=== PATIENT | male | born 1940 | race African-American/Black ===

== ENCOUNTER 2024-03-04 13:20 | Emergency (ER) | payer MEDICARE, MEDICAID ==
[~2024-03-04] VITALS: Ht 182.9 cm; Wt 80.0 kg
[2024-03-04 13:22] VITALS: O2SAT 97
[2024-03-04 14:37] LABS: HEMATOCRIT. 34.9 % (42.0-52.0); HEMOGLOBIN. 11.7 g/dL (14.0-18.0); MEAN CORPUSCULAR HEMOGLOBIN 30.2 pg (28.0-32.0); MEAN CORPUSCULAR HGB CONC 33.6 g/dL (31.0-37.0); MEAN PLATELET VOLUME 9.3 fl (7.4-10.4); PLATELET 104 x1000/uL (130-400); RED BLOOD CELL COUNT 3.88 mill/uL (4.7-6.1); RED CELL DISTRIBUTION WIDTH 14.6 % (11.6-14.6); WHITE BLOOD COUNT 2.8 x1000/uL (4.5-11.0)
[2024-03-04 14:39] LABS: DIFFERENTIAL COMMENT 1
[2024-03-04 14:43] LABS: PROTHROMBIN TIME 11.4 sec (9.6-11.0)
[2024-03-04 14:44] LABS: CARBON DIOXIDE 30 mEq/L (21-32); CHLORIDE 109 mEq/L (98-107); POTASSIUM 4.3 mEq/L (3.5-5.1); SODIUM 143 mEq/L (136-145)
[2024-03-04 14:45] LABS: CALCIUM 10.3 mg/dL (8.7-10.4)
[2024-03-04 14:50] LABS: CREATININE 1.5 mg/dL (0.6-1.3); GLUCOSE 94 mg/dL (70-105); UREA NITROGEN BLOOD 19 mg/dL (9-23)
[2024-03-04 14:59] LABS: TROPONIN I HIGH SENSITIVITY < 4 ng/L (3.0-53)
[2024-03-04 15:40] VITALS: BP 125/60; PULSE 56; RESP 11; TEMP 37.00296; O2SAT 97
[2024-03-04 16:05] LABS: CLARITY URINE CLEAR (CLEAR); COLOR URINE YELLOW (YELLOW); GLUCOSE URINE NEGATIVE (NEGATIVE); KETONES URINE NEGATIVE (NEGATIVE); LEUKOCYTE ESTERASE URINE NEGATIVE (NEGATIVE); NITRITE URINE NEGATIVE (NEGATIVE); OCCULT BLOOD URINE NEGATIVE (NEGATIVE); PH URINE 7.5 (4.5-8.0); PROTEIN URINE 1+ (NEGATIVE); SPECIFIC GRAVITY URINE 1.008 (1.005-1.030)
[2024-03-04 17:27] LABS: BACTERIA URINE NONE SEEN; RBC URINE NONE SEEN /hpf (0-2); SQUAMOUS EPITHELIAL CELL URINE FEW /lpf (RARE/1+)
[2024-03-04 22:30] LABS: PLATELET ESTIMATE NORMAL
== END 2024-03-04 16:01 | disposition home or self-care (01) ==
LOC: ER 13:33
DX: R55 Syncope and collapse (principal); I95.9 Hypotension, unspecified
CPT/HCPCS: 99285; 70450; 71045; 80048; 81003; 83880; 85025; 85610; 84484; 36415; 93005; A4663; A4606